=== PATIENT | female | born 1980 | race Caucasian/White ===

== ENCOUNTER 2018-03-09 16:49 | Emergency (ER) | payer OTHER, MEDICAID, SELFPAY ==
[2018-03-09 17:12] VITALS: BP 130/78; PULSE 82; RESP 17; TEMP 36.1; O2SAT 99
--- NOTE | 2018-03-09 17:58 | DI.CT.S_ITS ---
PROCEDURE: CT ABDOMEN PELVIS W CON INDICATIONS: Pain to bilateral lower quadrants starting today TECHNIQUE: After the administration of intravenous contrast, 5 mm thick sections acquired from the diaphragm to the symphysis. 5 mm coronal and sagittal reformats were acquired. For radiation dose reduction, the following was used: automated exposure control, adjustment of mA and/or kV according to patient size. COMPARISON: None. FINDINGS: Image quality: Excellent. ABDOMEN: Lung bases: Lung bases are clear. Heart size is normal. Solid organs: Liver is normal in size and overall enhancement. 2 circumscribed hypodense lesions are present, one within hepatic segment VII and one within hepatic segment II of which demonstrate subtle peripheral enhancement suggesting the presence of hemangiomas. Gallbladder is surgically absent. Biliary system is non dilated. Pancreas enhances normally. Spleen is normal in size and enhancement. No adrenal nodules. Kidneys demonstrate normal size and enhancement, without hydronephrosis. Peritoneum and bowel: Bowel loops demonstrate normal wall thickness and caliber. The appendix is likely visualized within the retrocecal location and is normal in thickness (series 2, images 58-55). No free fluid or air. Nodes and vessels: No retroperitoneal or mesenteric adenopathy by size criteria. Aorta and inferior vena cava are normal in size. Miscellaneous: No ventral hernias. PELVIS: Genitourinary: Bladder wall thickness is normal. The uterus and ovaries are grossly unremarkable. Miscellaneous: No inguinal hernias or adenopathy. Bones: No suspicious bony lesions. No vertebral body compression fractures. IMPRESSION: 1. No acute intra-abdominal findings. Probable retrocecal appendix which is normal in appearance. 2. Probable hepatic hemangiomas as described above. Non-emergent ultrasound is recommended to further characterize these findings and exclude hepatic pathology. Dictated by: Nicolasa Love M.D. on 03/09/2018 at 19:41 Approved by: Nicolasa Love M.D. on 03/09/2018 at 19:46
[2018-03-09 18:00] LABS: RBC Urine None Seen (0-5/HPF)
[2018-03-09 18:23] LABS: Bacteria Urine Occasional (0-1); Culture Indicated Urine Specimen Cultured; Squamous Epithelial Cell Urine 1-5 /HPF; WBC Urine 1-5/HPF (0-5/HPF)
[2018-03-09] MEDS: MORPHINE 4 MG/ML INJ IV (18:30)
[2018-03-09] MEDS: ONDANSETRON 4 MG/2 ML INJ IV (18:31)
[2018-03-09] MEDS: SODIUM CHLORIDE 0.9% 1,000 ML 1000 ML IV (18:31)
[2018-03-09 18:32] LABS: Add Manual Diff / Slide Review NO; Basophils Percent Auto 0.5 % (0-2); Eosinophils Percent Auto 2.2 % (2-4); Hematocrit 43.2 % (36-46); Hemoglobin 14.5 g/dL (12.0-16.0); Lymphocytes Percent Auto 25.8 % (25-40); Mean Corpuscular HGB Conc 33.5 % (30-36); Mean Corpuscular Hemoglobin 27.7 PG (26-34); Mean Corpuscular Volume 82.6 fL (80-100); Monocytes Percent Auto 4.3 % (3-14); Neutrophils Absolute Auto 8100 /uL (3000-5900); Neutrophils Percent Auto 67.2 % (50-75); Platelet Count 322 X10^3/uL (150-400); Red Blood Cell Count 5.23 X10^6/uL (4.0-5.2); Red Cell Distribution Width 14.3 % (11.6-14.8)
[2018-03-09] MEDS: diphenhydrAMINE 50 MG/ML VIAL IV (18:55)
[2018-03-09 18:58] LABS: Alanine Aminotransferase 29 IU/L (9-52); Albumin 4.6 g/dL (3.5-5.0); Albumin Globulin Ratio 1.6 (1.0-2.8); Alkaline Phosphatase 72 U/L (38-126); Aspartate Aminotransferase 19 IU/L (14-36); BUN Creatinine Ratio 22.9 (6-22); Bilirubin Total 0.3 mg/dL (0.2-1.3); Blood Urea Nitrogen 16 mg/dL (7-17); Calcium 9.4 mg/dL (8.4-10.2); Carbon Dioxide 24 mmol/L (22-32); Chloride 103 mmol/L (98-107); Estimated Glomerular Filt Rate > 60.0 mL/min (>60); Globulin 2.8 g/dL (1.7-4.1); Glucose 95 mg/dL (70-100); HEMOLYSIS < 15 (0-50); Lipase 53 U/L (23-300); Potassium 4.1 mmol/L (3.4-5.1); Sodium 141 mmol/L (137-145); Total Protein 7.4 g/dL (6.3-8.2)
[2018-03-09 19:02] VITALS: BP 132/64; PULSE 73; RESP 15; O2SAT 98
--- NOTE | 2018-03-09 19:42 | ED_ITS ---
HPI - Abdominal Pain <LESIA Valero - Last Filed: 03/09/18 21:47> General Chief Complaint: Abdominal Pain Stated Complaint: stomach pain all day Time Seen by Provider: 03/09/18 16:51 Source: patient Mode of arrival: ambulatory Limitations: no limitations History of Present Illness HPI narrative: 37-year-old female with history of a chronic pain that is a nonsmoker here for complaint of having abdominal pain that started earlier today. She states that the pain is mostly to the anterior portion of the abdomen and into the bilateral lower quadrants. She denies any trauma to the abdomen. She denies any stressors or relievers of her pain. She denies any urinary symptoms. No vaginal bleeding or discharge. Last bowel movement was earlier today and was unremarkable. She does have some nausea. She denies any vomiting. No fevers no chills. She denies any flank pain. No other concerns or complaints. MD complaint: abdominal pain Related Data Home Medications Medication Instructions Recorded Confirmed cyclobenzaprine 10 mg PO TID 03/09/18 03/09/18 levothyroxine 88 mcg PO DAILY 03/09/18 03/09/18 naproxen 500 mg PO BID 03/09/18 03/09/18 oxycodone 10 mg PO 5XD 03/09/18 03/09/18 Previous Rx's Medication Instructions Recorded nitrofurantoin monohyd/m-cryst 100 mg PO BID #14 cap 03/09/18 Allergies Allergy/AdvReac Type Severity Reaction Status Date / Time acetaminophen [From Vicodin] Allergy Verified 03/09/18 18:49 bimatoprost Allergy Verified 03/09/18 18:49 bupropion [From Wellbutrin] Allergy Verified 03/09/18 18:49 codeine Allergy Verified 03/09/18 18:49 erythromycin base Allergy Verified 03/09/18 18:49 escitalopram [From Lexapro] Allergy Verified 03/09/18 18:49 gabapentin Allergy Verified 03/09/18 18:49 hydrocodone [From Vicodin] Allergy Verified 03/09/18 18:49 hydromorphone Allergy Verified 03/09/18 18:49 ketorolac Allergy Verified 03/09/18 18:49 Penicillins Allergy Verified 03/09/18 18:49 prednisone Allergy Verified 03/09/18 18:49 sertraline [From Zoloft] Allergy Verified 03/09/18 18:49 shellfish derived Allergy Verified 03/09/18 18:49 tramadol Allergy Verified 03/09/18 18:49 venlafaxine Allergy Verified 03/09/18 18:49 Review of Systems <LESIA Valero - Last Filed: 03/09/18 21:47> Constitutional Denies chills, Denies fever(s), Denies lethargy and Denies weakness Eyes Denies change in vision, Denies eye discharge, Denies irritation and Denies loss of vision ENT Ears, Nose, Mouth, and Throat: Denies change in voice, Denies neck pain and Denies sore throat Cardiovascular Denies chest pain, Denies irregular heart rhythm, Denies lightheadedness, Denies palpitations, Denies dyspnea, Denies dyspnea on exertion and Denies orthopnea Respiratory Denies cough, Denies dyspnea, Denies dyspnea on exertion and Denies wheezing Gastrointestinal Gastrointestinal: Reports abdominal pain and Reports nausea Genitourinary Denies hematuria, Denies flank pain, Denies urinary incontinence and Denies urinary urgency Musculoskeletal Denies neck pain Integumentary/Breasts Denies pruritus, Denies erythema, Denies rash and Denies wounds Neurologic Denies confusion, Denies loss of vision and Denies weakness Psychiatric Denies anxiety, Denies confusion, Denies depression, Denies homicidal ideation and Denies suicidal ideation Endocrine Denies palpitations Hematologic/Lymphatic Denies easy bruising Allergic/Immunologic Denies wheezing Exam <LESIA Valero - Last Filed: 03/09/18 21:47> Initial Vital Signs Initial Vital Signs: Vital Signs Temperature 97 F L 03/09/18 17:12 Pulse Rate 82 03/09/18 17:12 Respiratory Rate 17 03/09/18 17:12 Blood Pressure 130/78 03/09/18 17:12 Pulse Oximetry 99 03/09/18 17:12 Const General: cooperative and well developed Nutritional Appearance: well nourished Orientation: alert, awake, oriented x3 and not confused HENSD Mouth: oral mucosae normal and moist mucous membranes Eyes Conjunctivae: conjunctivae normal Sclera: sclerae normal Pupils: PERRL EOM: EOM intact bilaterally Resp Effort & Inspection: normal respiratory effort, able to speak in complete sentences, no respiratory distress and no use of accessory muscles Auscultation: clear to auscultation bilaterally, no rales, no rhonchi and no wheezes Cardio Rate: regular rate Rhythm: regular rhythm Heart Sounds: no click, no gallops, no murmurs and no rubs Pulses: normal peripheral pulses GI Inspection: non-distended Palpation: soft, no hepatosplenomegaly, No guarding, No pulsatile mass and tender Auscultation: normal bowel sounds General: No bladder abnormal Skin General: no rashes or lesions noted, No jaundice and No petechiae Neuro General: alert, oriented x3, gait normal and no focal motor deficits Speech: speech normal <Surjit Bernal DO - Last Filed: 03/09/18 23:04> Initial Vital Signs Initial Vital Signs: Vital Signs Temperature 97 F L 03/09/18 17:12 Pulse Rate 82 03/09/18 17:12 Respiratory Rate 17 03/09/18 17:12 Blood Pressure 130/78 03/09/18 17:12 Pulse Oximetry 99 03/09/18 17:12 Course <LESIA Valero - Last Filed: 03/09/18 21:47> Orders Ordered: ED Orders 03/09/18 17:15 Urine Culture Stat Urine Microscopic Stat 03/09/18 17:58 CT abdomen pelvis w con Stat 03/09/18 18:20 Complete Blood Count AUTO DIFF Stat Comprehensive Metabolic Panel Stat Lipase Stat Discontinued Medications Diphenhydramine HCl (Benadryl) 50 mg IV NOW ONE Stop: 03/09/18 18:53 Last Admin: 03/09/18 18:55 Dose: 50 mg Sodium Chloride (Normal Saline 0.9%) 1,000 mls @ 1,000 mls/hr IV BOLUS ONE Stop: 03/09/18 18:54 Last Infusion: 03/09/18 20:36 Dose: 0 mls/hr Admin: 03/09/18 18:31 Dose: 1,000 mls/hr Morphine Sulfate (Morphine) 4 mg IV NOW ONE Stop: 03/09/18 17:56 Last Admin: 03/09/18 18:30 Dose: 4 mg Ondansetron HCl (Zofran) 4 mg IV NOW ONE Stop: 03/09/18 17:56 Last Admin: 03/09/18 18:31 Dose: 4 mg Vital Signs - 8 hr 03/09/18 17:12 03/09/18 19:02 Temperature 97 F L Pulse Rate 82 73 Respiratory Rate 17 15 Blood Pressure 130/78 Blood Pressure [Right Arm] 132/64 Pulse Oximetry 99 98 <Surjit Bernal DO - Last Filed: 03/09/18 23:04> Orders Ordered: ED Orders 03/09/18 17:15 Urine Culture Stat Urine Microscopic Stat 03/09/18 17:58 CT abdomen pelvis w con Stat 03/09/18 18:20 Complete Blood Count AUTO DIFF Stat Comprehensive Metabolic Panel Stat Lipase Stat Discontinued Medications Diphenhydramine HCl (Benadryl) 50 mg IV NOW ONE Stop: 03/09/18 18:53 Last Admin: 03/09/18 18:55 Dose: 50 mg Sodium Chloride (Normal Saline 0.9%) 1,000 mls @ 1,000 mls/hr IV BOLUS ONE Stop: 03/09/18 18:54 Last Infusion: 03/09/18 20:36 Dose: 0 mls/hr Admin: 03/09/18 18:31 Dose: 1,000 mls/hr Morphine Sulfate (Morphine) 4 mg IV NOW ONE Stop: 03/09/18 17:56 Last Admin: 03/09/18 18:30 Dose: 4 mg Ondansetron HCl (Zofran) 4 mg IV NOW ONE Stop: 03/09/18 17:56 Last Admin: 03/09/18 18:31 Dose: 4 mg Vital Signs - 8 hr 03/09/18 17:12 03/09/18 19:02 Temperature 97 F L Pulse Rate 82 73 Respiratory Rate 17 15 Blood Pressure 130/78 Blood Pressure [Right Arm] 132/64 Pulse Oximetry 99 98 MDM - Abdominal Pain <LESIA Valero - Last Filed: 03/09/18 21:47> Lab Data Result diagrams: 03/09/18 18:20 03/09/18 18:20 Lab Results 03/09/18 03/09/18 03/09/18 Range/Units 17:15 18:20 18:20 WBC 12.0 H (4.5-11.0) X10^3/uL RBC 5.23 H (4.0-5.2) X10^6/uL Hgb 14.5 (12.0-16.0) g/dL Hct 43.2 (36-46) % MCV 82.6 (80-100) fL MCH 27.7 (26-34) PG MCHC 33.5 (30-36) % RDW 14.3 (11.6-14.8) % Plt Count 322 (150-400) X10^3/uL Neut % (Auto) 67.2 (50-75) % Lymph % (Auto) 25.8 (25-40) % [place]ne % (Auto) 4.3 (3-14) % Eos % (Auto) 2.2 (2-4) % Baso % (Auto) 0.5 (0-2) % Neut # (Auto) 8100 H (1886-2428) /uL Sodium 141 (137-145) mmol/L Potassium 4.1 (3.4-5.1) mmol/L Chloride 103 (98-107) mmol/L Carbon Dioxide 24 (22-32) mmol/L BUN 16 (7-17) mg/dL Creatinine 0.70 (0.52-1.04) mg/dL Estimated GFR > 60.0 (>60) mL/min BUN/Creatinine Ratio 22.9 H (6-22) Glucose 95 (70-100) mg/dL Calcium 9.4 (8.4-10.2) mg/dL Total Bilirubin 0.3 (0.2-1.3) mg/dL AST 19 (14-36) IU/L ALT 29 (9-52) IU/L Alkaline Phosphatase 72 (38-126) U/L Total Protein 7.4 (6.3-8.2) g/dL Albumin 4.6 (3.5-5.0) g/dL Globulin 2.8 (1.7-4.1) g/dL Albumin/Globulin Ratio 1.6 (1.0-2.8) Lipase 53 (23-300) U/L Urine RBC None seen (0-5/HPF) Urine WBC 1-5/hpf (0-5/HPF) Ur Squamous Epith Cells 1-5 /hpf Urine Bacteria Occasional (0-1) (None) Ur Culture Indicated? Specimen cultured Micro UA Comment Not Reportable Point of care testing: Point of Care Testing Test Results Negative Urine Dip Bedside Urine Glucose Negative Bedside Urine Bilirubin - Negative Bedside Urine Ketone +/- 5 Urine Specific [place] 1.020 Bedside Urine Occult Blood - Negative Bedside Urine pH 6.0 Bedside Urine Protein - Negative Bedside Urine Urobilinogen - Negative Bedside Urine Nitrite - Negative Bedside Urine Leukocytes +/- [address] scan - abdomen: Radiologist's impression: [address] [address] [address] Scan Report Signed Patient: Tiffany Ford MMR#: [id number] : 1980Acct:[id number] Age/Sex: 37 / FDate of Service: 03/09/18 Loc: ED Accession Number: [id number] Procedure: CT abdomen pelvis w con Ordering Provider: Robin Wilson PROCEDURE: CT ABDOMEN PELVIS W CON INDICATIONS: Pain to bilateral lower quadrants starting today TECHNIQUE: After the administration of intravenous contrast, 5 mm thick sections acquired from the diaphragm to the symphysis. 5 mm coronal and sagittal reformats were acquired. For radiation dose reduction, the following was used: automated exposure control, adjustment of mA and/or kV according to patient size. COMPARISON: None. FINDINGS: Image quality: Excellent. ABDOMEN: Lung bases: Lung bases are clear. Heart size is normal. Solid organs: Liver is normal in size and overall enhancement. 2 circumscribed hypodense lesions are present, one within hepatic segment VII and one within hepatic segment II of which demonstrate subtle peripheral enhancement suggesting the presence of hemangiomas. Gallbladder is surgically absent. Biliary system is non dilated. Pancreas enhances normally. Spleen is normal in size and enhancement. No adrenal nodules. Kidneys demonstrate normal size and enhancement, without hydronephrosis. Peritoneum and bowel: Bowel loops demonstrate normal wall thickness and caliber. The appendix is likely visualized within the retrocecal location and is normal in thickness (series 2, images 58-55). No free fluid or air. Nodes and vessels: No retroperitoneal or mesenteric adenopathy by size criteria. Aorta and inferior vena cava are normal in size. Miscellaneous: No ventral hernias. PELVIS: Genitourinary: Bladder wall thickness is normal. The uterus and ovaries are grossly unremarkable. Miscellaneous: No inguinal hernias or adenopathy. Bones: No suspicious bony lesions. No vertebral body compression fractures. IMPRESSION: 1. No acute intra-abdominal findings. Probable retrocecal appendix which is normal in appearance. 2. Probable hepatic hemangiomas as described above. Non-emergent ultrasound is recommended to further characterize these findings and exclude hepatic pathology. Dictated by: Nicolasa Love M.D. on 03/09/2018 at 19:41 Approved by: Nicolasa Love M.D. on 03/09/2018 at 19:46 MDM Narrative Medical decision making narrative: CBC shows a slightly elevated white count and neutrophils. CMP and lipase were obtained were unremarkable. Urinalysis shows signs of a urinary tract infection however she denies having any symptoms. CT of the abdomen was obtained was negative for any acute findings. No cause of her abdominal pain is found other than urinalysis. CT of the abdomen does show hemangiomas to the liver will have her follow up with primary care provider for supervision of these. Differential between a viral illness and urinary tract infection. Culture and sensitivity are pending Over-the- counter Tylenol as needed for any discomfort. Follow up with primary care provider. She is prescribed Macrobid to empirically treat for urinary tract infection. For any worsening symptoms return to the emergency room. <Surjit Bernal DO - Last Filed: 03/09/18 23:04> Lab Data Lab Results 03/09/18 03/09/18 03/09/18 Range/Units 17:15 18:20 18:20 WBC 12.0 H (4.5-11.0) X10^3/uL RBC 5.23 H (4.0-5.2) X10^6/uL Hgb 14.5 (12.0-16.0) g/dL Hct 43.2 (36-46) % MCV 82.6 (80-100) fL MCH 27.7 (26-34) PG MCHC 33.5 (30-36) % RDW 14.3 (11.6-14.8) % Plt Count 322 (150-400) X10^3/uL Neut % (Auto) 67.2 (50-75) % Lymph % (Auto) 25.8 (25-40) % [place]ne % (Auto) 4.3 (3-14) % Eos % (Auto) 2.2 (2-4) % Baso % (Auto) 0.5 (0-2) % Neut # (Auto) 8100 H (7847-6642) /uL Sodium 141 (137-145) mmol/L Potassium 4.1 (3.4-5.1) mmol/L Chloride 103 (98-107) mmol/L Carbon Dioxide 24 (22-32) mmol/L BUN 16 (7-17) mg/dL Creatinine 0.70 (0.52-1.04) mg/dL Estimated GFR > 60.0 (>60) mL/min BUN/Creatinine Ratio 22.9 H (6-22) Glucose 95 (70-100) mg/dL Calcium 9.4 (8.4-10.2) mg/dL Total Bilirubin 0.3 (0.2-1.3) mg/dL AST 19 (14-36) IU/L ALT 29 (9-52) IU/L Alkaline Phosphatase 72 (38-126) U/L Total Protein 7.4 (6.3-8.2) g/dL Albumin 4.6 (3.5-5.0) g/dL Globulin 2.8 (1.7-4.1) g/dL Albumin/Globulin Ratio 1.6 (1.0-2.8) Lipase 53 (23-300) U/L Urine RBC None seen (0-5/HPF) Urine WBC 1-5/hpf (0-5/HPF) Ur Squamous Epith Cells 1-5 /hpf Urine Bacteria Occasional (0-1) (None) Ur Culture Indicated? Specimen cultured Micro UA Comment Not Reportable Point of care testing: Point of Care Testing Test Results Negative Urine Dip Bedside Urine Glucose Negative Bedside Urine Bilirubin - Negative Bedside Urine Ketone +/- 5 Urine Specific [place] 1.020 Bedside Urine Occult Blood - Negative Bedside Urine pH 6.0 Bedside Urine Protein - Negative Bedside Urine Urobilinogen - Negative Bedside Urine Nitrite - Negative Bedside Urine Leukocytes +/- 15 Esterase Discharge Plan Departure Patient Disposition: Home Clinical Impression: Abdominal pain Discharge Date/Time: 03/09/18 20:48 Interventions: ED Discharge Assessment Last Done: 03/09/18 20:48 Instructions: DI for Abdominal Pain-Adult Activity Restrictions/Additional Instructions: Laboratory results show mildly elevated white count and neutrophils. Urinalysis shows signs of urinary tract infection. To for Aman between a viral illness and urinary tract infection causing her discomfort. You are prescribed an antibiotic called Macrobid use as directed. Plenty of fluids. Use over-the- counter Tylenol as needed for any discomfort. Follow up with primary care provider in the next few days for re-evaluation. CT of the abdomen was obtained was negative for any acute findings. CT of the abdomen does show some hemangiomas to the liver. These will need to be monitored and supervised by her primary care provider to ensure there stable. For any worsening symptoms return to the emergency room. Prescriptions: New nitrofurantoin monohyd/m-cryst 100 mg capsule 100 mg PO BID Qty: 14 RF: 0 No Action cyclobenzaprine 10 mg tablet 10 mg PO TID RF: 0 levothyroxine 88 mcg tablet 88 mcg PO DAILY RF: 0 naproxen 500 mg tablet 500 mg PO BID RF: 0 oxycodone 10 mg tablet 10 mg PO 5XD RF: 0 Referrals: Tyra De Leon ARNP [Primary Care Provider] - <Surjit Bernal DO - Last Filed: 03/09/18 23:04> Cosign ED Attending Marina Attestation: I was immediately available in the department for consultation. Documentation has been reviewed. I agree with assessment and plan.
== END 2018-03-09 20:48 | disposition home or self-care (01) ==
PROVIDERS: Emergency Provider Nurse Practitioner Family; PCP Nurse Practitioner Gerontology
DX: R10.9 Unspecified abdominal pain (principal)
CPT/HCPCS: 36591; 74177; 80053; 81003; 81015; 81025; 83690; 85025; 87086; 96361; 96374; 96375; 99283; 99285; J1200; J2270; J2405; Q9967

== ENCOUNTER 2018-08-09 16:49 | Emergency (ER) | payer OTHER, MEDICAID, SELFPAY ==
[2018-08-09 17:13] VITALS: BP 137/83; PULSE 77; RESP 22; TEMP 36.4; O2SAT 97
--- NOTE | 2018-08-09 17:52 | PC.NURSE ---
Pt states has seen pain doctor for left knee pain. Was told she needs to have fluid in her knee pulled out and an injection of cortisone for pain. Is waiting on insurance approval. She states she noticed some posterior calf pain today that feels like a daily horse.Denies chest pain or shortness of breath.
--- NOTE | 2018-08-09 18:01 | PC.NURSE ---
Pt states she thinks she has UTI. Obtained urine speciment for POC urine dip.
--- NOTE | 2018-08-09 18:49 | DI.US.S_ITS ---
PROCEDURE: US PERIPH VENOUS LOW EXTREM LT INDICATIONS: pain, swelling, no injury TECHNIQUE: Real-time imaging, as well as color and pulse Doppler interrogation, were performed of the lower extremity deep veins from the inguinal ligament to the popliteal fossa. COMPARISON: None. FINDINGS: The common femoral, femoral and popliteal veins are normally compressible, and free of intraluminal thrombus. Color and pulse Doppler demonstrate normal phasic intraluminal flow. There is normal augmentation response to distal compression maneuver. IMPRESSION: No deep venous thrombosis in the left lower extremity. Dictated by: Hadley Nuno M.D. on 08/09/2018 at 20:15 Approved by: Hadley Nuno M.D. on 08/09/2018 at 20:15
[2018-08-09 20:15] VITALS: BP 138/77; PULSE 74; RESP 18; O2SAT 100
--- NOTE | 2018-08-10 02:06 | ED.EXTPRO ---
HPI - Extremity Problem General Chief complaint: Extremity Problem,Nontraumatic Stated complaint: knee swelling,feels like daily horse Time Seen by Provider: 08/09/18 18:07 Source: patient and family Mode of arrival: ambulatory Limitations: no limitations History of Present Illness HPI Narrative: 37-year-old female nonsmoker history of morbid obesity, chronic back pain presents with many months ongoing left knee pain. She denies any specific injury and states it is likely due to wear and tear. She states that there is always a small amount of fluid on her knee but that has increased over the past few weeks. She now has some pain and swelling in her posterior calf. Family member works in health care and states she might have a blood clot so she presents for evaluation. She denies any redness, swelling warmth. She denies any specific injury. She is otherwise well and free of complaint. She denies any numbness, tingling weakness MD Complaint: extremity pain and extremity swelling Onset (ago): month(s) Pain Consistency: constant Location: left Quality: aching Radiation: none Relieving factors: movement Exacerbating factors: range of motion and weight bearing Associated symptoms: denies other symptoms Related Data Home Medications Medication Instructions Recorded Confirmed cyclobenzaprine 10 mg PO TID 03/09/18 08/09/18 levothyroxine 88 mcg PO DAILY 03/09/18 08/09/18 naproxen 500 mg PO BID 03/09/18 03/09/18 oxycodone 10 mg PO 5XD 03/09/18 08/09/18 Previous Rx's Medication Instructions Recorded nitrofurantoin monohyd/m-cryst 100 mg PO BID #14 cap 03/09/18 Allergies Allergy/AdvReac Type Severity Reaction Status Date / Time acetaminophen [From Vicodin] Allergy Verified 03/09/18 18:49 bimatoprost Allergy Verified 03/09/18 18:49 bupropion [From Wellbutrin] Allergy Verified 03/09/18 18:49 codeine Allergy Verified 03/09/18 18:49 erythromycin base Allergy Verified 03/09/18 18:49 escitalopram [From Lexapro] Allergy Verified 03/09/18 18:49 gabapentin Allergy Verified 03/09/18 18:49 hydrocodone [From Vicodin] Allergy Verified 03/09/18 18:49 hydromorphone Allergy Verified 03/09/18 18:49 ketorolac Allergy Verified 03/09/18 18:49 Penicillins Allergy Verified 03/09/18 18:49 prednisone Allergy Verified 03/09/18 18:49 sertraline [From Zoloft] Allergy Verified 03/09/18 18:49 shellfish derived Allergy Verified 03/09/18 18:49 tramadol Allergy Verified 03/09/18 18:49 venlafaxine Allergy Verified 03/09/18 18:49 Review of Systems Constitutional Denies chills, Denies fever(s), Denies lethargy and Denies weakness Eyes Denies change in vision, Denies eye discharge, Denies irritation and Denies loss of vision ENT Ears, Nose, Mouth, and Throat: Denies change in voice, Denies neck pain and Denies sore throat Cardiovascular Denies chest pain, Denies irregular heart rhythm, Denies lightheadedness, Denies palpitations, Denies dyspnea, Denies dyspnea on exertion and Denies orthopnea Respiratory Denies cough, Denies dyspnea, Denies dyspnea on exertion and Denies wheezing Gastrointestinal Gastrointestinal: Denies abdominal pain, Denies change in bowel habits, Denies diarrhea, Denies nausea and Denies vomiting Genitourinary Denies hematuria, Denies flank pain, Denies urinary incontinence and Denies urinary urgency Musculoskeletal Reports joint swelling and Denies neck pain Integumentary/Breasts Denies pruritus, Denies erythema, Denies rash and Denies wounds Neurologic Denies confusion, Denies loss of vision and Denies weakness Psychiatric Denies anxiety, Denies confusion, Denies depression, Denies homicidal ideation and Denies suicidal ideation Endocrine Denies palpitations Hematologic/Lymphatic Denies easy bruising Allergic/Immunologic Denies wheezing PFSH Social History Smoking Status: Never smoker Social History Smoking Status: Never smoker Exam Narrative Exam Narrative: GEN: 37-year-old female, morbidly obese AOx3 and in mild distress EYES: Pupils are equal, round, and reactive to light and accommodation. Extraoccular muscles are intact bilaterally. There is no subconjunctival hemorrhage or exudate. CHEST: Lungs are clear to auscultation bilaterally and free of wheezes, rales, or rhonchi. Heart rate is regular rhythm, there are no murmurs, clicks, rubs, or gallops. There is no chest wall tenderness. ABD: Abdomen is soft and nontender. There is no guarding or rebound. Bowel sounds are normal in all 4 quadrants. There is no mass or organomegaly. EXT: Full but painful range of motion of the left knee with a mild effusion. No erythema, warmth. Full ROM, no signs of septic arthritis SKIN: Warm, pink, and dry. No erythema or rash Initial Vital Signs Initial Vital Signs: Vital Signs Temperature 97.6 F 08/09/18 17:13 Pulse Rate 77 08/09/18 17:13 Respiratory Rate 22 08/09/18 17:13 Blood Pressure 137/83 08/09/18 17:13 Pulse Oximetry 97 08/09/18 17:13 Course Orders Ordered: ED Orders 08/09/18 18:49 US periph venous low extrem lt Stat Vital Signs - 8 hr 08/09/18 20:15 Pulse Rate 74 Respiratory Rate 18 Blood Pressure 138/77 Pulse Oximetry 100 MDM - Extremity (Nontraumatic) Lab Data Point of Care Testing Test Results Negative Urine Dip Bedside Urine Glucose Negative Bedside Urine Bilirubin - Negative Bedside Urine Ketone - Negative Urine Specific [place] 1.025 Bedside Urine Occult Blood - Negative Bedside Urine pH 6.0 Bedside Urine Protein - Negative Bedside Urine Urobilinogen - Negative Bedside Urine Nitrite - Negative Bedside Urine Leukocytes - Negative Esterase Imaging Data US: Attestation: I personally reviewed and interpreted this imaging study as follows: Radiologist's impression: No DVT Discharge Plan Departure Patient Disposition: Home Clinical Impression: Acute knee pain Qualifiers: Laterality: left Qualified Code(s): M25.562 - Pain in left knee Discharge Date/Time: 08/09/18 20:16 Interventions: ED Discharge Assessment Last Done: 08/09/18 20:15 Instructions: DI for Knee Pain Activity Restrictions/Additional Instructions: *You have been diagnosed with [acute on chronic left knee pain] *What to do: *Take medications as directed: Tylenol or Motrin *Follow up with your primary care provider in 2-3 days, call for an appointment. Let them know you were seen in the Emergency Department and that we ask that you be seen in follow up *Return to ER if you should have any new, worsening or concerning symptoms Prescriptions: No Action cyclobenzaprine 10 mg tablet 10 mg PO TID RF: 0 levothyroxine 88 mcg tablet 88 mcg PO DAILY RF: 0 naproxen 500 mg tablet 500 mg PO BID RF: 0 oxycodone 10 mg tablet 10 mg PO 5XD RF: 0 nitrofurantoin monohyd/m-cryst 100 mg capsule 100 mg PO BID Qty: 14 RF: 0 Referrals: Tyra De Leon ARNP [Primary Care Provider] -
== END 2018-08-09 20:16 | disposition home or self-care (01) ==
PROVIDERS: Emergency Provider Emergency Medicine; PCP Nurse Practitioner Gerontology
DX: M25.562 Pain in left knee (principal); R60.9 Edema, unspecified
CPT/HCPCS: 81003; 81025; 93971; 99282; 99283

== ENCOUNTER 2018-12-20 18:10 | Emergency (ER) | payer OTHER, MEDICAID, SELFPAY ==
[2018-12-20 18:18] VITALS: BP 128/56; PULSE 76; RESP 16; TEMP 36.8; O2SAT 100; BMI 51.9
--- NOTE | 2018-12-20 18:29 | ED.SKABFB ---
HPI - Skin/Abscess/Foreign Bdy General Chief complaint: Skin/Abscess/Foreign Body Stated complaint: RIGHT LOWER AREA INFECTION Time Seen by Provider: 12/20/18 18:10 Source: patient Mode of arrival: ambulatory Limitations: no limitations History of Present Illness HPI narrative: 37-year-old female nonsmoker presents with a red, painful lesion on her right lower abdomen which started as a pimple and has grown in size and spontaneously started draining. She denies systemic findings such as fever, chills nor nausea or vomiting. She denies any change in bowel or bladder habits. She does have a history of ingrown hairs on her abdomen which have become pustules in the past but never anything as large as this. complaint: abscess/boil Onset (ago): day(s) Tetanus up to date: yes Location: generalized (Right lower quadrant, abdominal wall) Severity: mild Quality: aching Relieving factors: none Associated symptoms: denies other symptoms Treatments prior to arrival: attempted to drain pus at home Related Data Home Medications Medication Instructions Recorded Confirmed cyclobenzaprine 10 mg PO TID 03/09/18 08/09/18 levothyroxine 88 mcg PO DAILY 03/09/18 08/09/18 naproxen 500 mg PO BID 03/09/18 03/09/18 oxycodone 10 mg PO 5XD 03/09/18 08/09/18 Previous Rx's Medication Instructions Recorded nitrofurantoin monohyd/m-cryst 100 mg PO BID #14 cap 03/09/18 doxycycline hyclate 100 mg PO BID #20 tab 12/20/18 Allergies Allergy/AdvReac Type Severity Reaction Status Date / Time acetaminophen [From Vicodin] Allergy Verified 03/09/18 18:49 bimatoprost Allergy Verified 03/09/18 18:49 bupropion [From Wellbutrin] Allergy Verified 03/09/18 18:49 codeine Allergy Verified 03/09/18 18:49 erythromycin base Allergy Verified 03/09/18 18:49 escitalopram [From Lexapro] Allergy Verified 03/09/18 18:49 gabapentin Allergy Verified 03/09/18 18:49 hydrocodone [From Vicodin] Allergy Verified 03/09/18 18:49 hydromorphone Allergy Verified 03/09/18 18:49 ketorolac Allergy Verified 03/09/18 18:49 Penicillins Allergy Verified 03/09/18 18:49 prednisone Allergy Verified 03/09/18 18:49 sertraline [From Zoloft] Allergy Verified 03/09/18 18:49 shellfish derived Allergy Verified 03/09/18 18:49 tramadol Allergy Verified 03/09/18 18:49 venlafaxine Allergy Verified 03/09/18 18:49 Review of Systems Constitutional Constitutional: Denies chills, Denies fatigue, Denies fever(s), Denies frequent falls, Denies lethargy and Denies weakness Eyes Eyes: Denies change in vision, Denies eye discharge, Denies irritation and Denies loss of vision ENT Ears, Nose, Mouth, and Throat: Denies change in voice, Denies dizziness, Denies neck pain, Denies sore throat and Denies throat swelling Cardiovascular Cardiovascular: Denies chest pain, Denies irregular heart rhythm, Denies lightheadedness, Denies palpitations, Denies dyspnea, Denies dyspnea on exertion and Denies orthopnea Respiratory Respiratory: Denies cough, Denies dyspnea, Denies dyspnea on exertion and Denies wheezing Gastrointestinal Gastrointestinal: Denies abdominal pain, Denies change in bowel habits, Denies diarrhea, Denies nausea and Denies vomiting Genitourinary Genitourinary: Denies hematuria, Denies flank pain, Denies urinary incontinence and Denies urinary urgency Musculoskeletal Musculoskeletal: Denies back pain, Denies muscle weakness, Denies neck pain, Denies numbness and Denies tingling Integumentary/Breasts Skin/Breast: Denies pruritus, Reports erythema, Denies rash, Reports skin pain, Reports skin swelling, Reports sores and Denies wounds Neurologic Neurologic: Denies behavioral changes, Denies confusion, Denies dizziness, Denies frequent falls, Denies loss of vision, Denies numbness, Denies tingling and Denies weakness Psychiatric Psychiatric: Denies anxiety, Denies behavioral changes, Denies confusion, Denies depression, Denies homicidal ideation and Denies suicidal ideation Endocrine Endocrine: Denies fatigue, Denies flushing and Denies palpitations Hematologic/Lymphatic Hematologic/Lymphatic: Denies easy bruising Allergic/Immunologic Allergic/Immunologic: Denies urticaria, Denies throat swelling and Denies wheezing PFSH Social History Smoking Status: Never smoker Social History Smoking Status: Never smoker Exam Narrative Exam Narrative: GEN: 37-year-old female appears stated age AOx3 and in mild distress EYES: Pupils are equal, round, and reactive to light and accommodation. Extraoccular muscles are intact bilaterally. There is no subconjunctival hemorrhage or exudate. CHEST: Lungs are clear to auscultation bilaterally and free of wheezes, rales, or rhonchi. Heart rate is regular rhythm, there are no murmurs, clicks, rubs, or gallops. There is no chest wall tenderness. ABD: Abdomen is soft and nontender. There is no guarding or rebound. Bowel sounds are normal in all 4 quadrants. There is no mass or organomegaly. EXT: Full painless ROM of all extremities with no loss of sensation or strength. SKIN: A 2 x 2 cm area of erythema without induration or fluctuance, central area with granulation tissue and some purulence drainage which was cultured and sent to the lab Initial Vital Signs Initial Vital Signs: Vital Signs Temperature 98.2 F 12/20/18 18:18 Pulse Rate 76 12/20/18 18:18 Respiratory Rate 16 12/20/18 18:18 Blood Pressure 128/56 L 12/20/18 18:18 Pulse Oximetry 100 12/20/18 18:18 Course Orders Ordered: ED Orders 12/20/18 18:30 Wound Culture and Gram Stain Stat Discontinued Medications Doxycycline Hyclate (Vibramycin) 100 mg PO NOW ONE Stop: 12/20/18 18:26 Last Admin: 12/20/18 18:30 Dose: 100 mg Documented by: GAB Vital Signs Vital signs: Vital Signs - 8 hr 12/20/18 18:18 Temperature 98.2 F Pulse Rate 76 Respiratory Rate 16 Blood Pressure 128/56 L Pulse Oximetry 100 Discharge Plan Departure Patient Disposition: Home Clinical Impression: Abscess of skin or subcutaneous tissue Qualifiers: Site of cutaneous abscess: trunk Site of cutaneous abscess of trunk: abdominal wall Qualified Code(s): L02.211 - Cutaneous abscess of abdominal wall Discharge Date/Time: 12/20/18 18:38 Instructions: DI for Skin Abscess Activity Restrictions/Additional Instructions: *You have been diagnosed with [superficial cutaneous abscess] *What to do: *Take medications as directed: Your prescription has been electronically transmitted to [facility] at your request *Follow up with your primary care provider in 2-3 days, call for an appointment. Let them know you were seen in the Emergency Department and that we ask that you be seen in follow up *Return to ER if you should have any new, worsening or concerning symptoms Prescriptions: New doxycycline hyclate 100 mg tablet 100 mg PO BID Qty: 20 RF: 0 No Action cyclobenzaprine 10 mg tablet 10 mg PO TID RF: 0 levothyroxine 88 mcg tablet 88 mcg PO DAILY RF: 0 naproxen 500 mg tablet 500 mg PO BID RF: 0 oxycodone 10 mg tablet 10 mg PO 5XD RF: 0 nitrofurantoin monohyd/m-cryst 100 mg capsule 100 mg PO BID Qty: 14 RF: 0 Referrals: Tyra De Leon ARNP [Non-Staff] -
[2018-12-20] MEDS: DOXYCYCLINE HYCLATE 100 MG TABLET PO (18:30)
== END 2018-12-20 18:38 | disposition home or self-care (01) ==
PROVIDERS: Emergency Provider Emergency Medicine; PCP Internal Medicine
DX: L02.211 Cutaneous abscess of abdominal wall (principal)
CPT/HCPCS: 87070; 87075; 87077; 87186; 87205; 99282; 99283

== ENCOUNTER 2020-12-16 16:01 | Emergency (ER) | payer OTHER, MEDICAID, SELFPAY ==
[2020-12-16 16:39] VITALS: BP 135/85; PULSE 67; RESP 18; TEMP 36.6; O2SAT 96; BMI 50.2
[2020-12-16 17:02] LABS: COVID19 -Nasal RAPID Negative (Negative)
--- NOTE | 2020-12-16 17:47 | PC.NURSE ---
assessment done by provider.
--- NOTE | 2020-12-16 20:21 | ED.URI ---
HPI - URI/Sore Throat <Dejah Cabrera PA-C - Last Filed: 12/16/20 21:01> General Chief Complaint: Upper Respiratory Symptoms Stated Complaint: COVID EXPOSED COUGHING HEADACHE DIZZY Time Seen by Provider: 12/16/20 17:32 Source: patient Mode of arrival: Family Vehicle Limitations: no limitations History of Present Illness HPI Narrative: 39-year-old female with a history of diabetes presents to the ED with 2 days of headache, cough. Patient endorses exposure to COVID-19, is unvaccinated for COVID 19. Denies fever, chills, chest pain, shortness of breath, nausea, vomiting, syncope. Denies visual disturbances, neck pain. Related Data Home Medications Medication Instructions Recorded Confirmed cyclobenzaprine 10 mg tablet 10 mg PO TID 03/09/18 08/09/18 levothyroxine 88 mcg tablet 88 mcg PO DAILY 03/09/18 08/09/18 naproxen 500 mg tablet 500 mg PO BID 03/09/18 03/09/18 oxycodone 10 mg tablet 10 mg PO 5XD 03/09/18 08/09/18 Previous Rx's Medication Instructions Recorded nitrofurantoin 100 mg PO BID #14 cap 03/09/18 monohydrate/macrocrystals 100 mg capsule doxycycline hyclate 100 mg tablet 100 mg PO BID #20 tab 12/20/18 Allergies Allergy/AdvReac Type Severity Reaction Status Date / Time acetaminophen [From Vicodin] Allergy Verified 12/16/20 16:44 bimatoprost Allergy Verified 12/16/20 16:44 bupropion [From Wellbutrin] Allergy Verified 12/16/20 16:44 codeine Allergy Verified 12/16/20 16:44 erythromycin base Allergy Verified 12/16/20 16:44 escitalopram [From Lexapro] Allergy Verified 12/16/20 16:44 gabapentin Allergy Verified 12/16/20 16:44 hydrocodone [From Vicodin] Allergy Verified 12/16/20 16:44 hydromorphone Allergy Verified 12/16/20 16:44 ketorolac Allergy Verified 12/16/20 16:44 Penicillins Allergy Verified 12/16/20 16:44 prednisone Allergy Verified 12/16/20 16:44 sertraline [From Zoloft] Allergy Verified 12/16/20 16:44 shellfish derived Allergy Verified 12/16/20 16:44 tramadol Allergy Verified 12/16/20 16:44 venlafaxine Allergy Verified 12/16/20 16:44 Review of Systems <Dejah Cabrera PA-C - Last Filed: 12/16/20 21:01> Constitutional Constitutional: Reports body ache(s), Denies chills, Denies fatigue, Denies fever(s), Denies frequent falls, Reports headache(s), Denies lethargy and Denies weakness Eyes Eyes: Denies change in vision, Denies eye discharge, Denies irritation and Denies loss of vision ENT Ears, Nose, Mouth, and Throat: Denies change in voice, Denies dizziness, Reports headache(s), Denies neck pain, Denies sore throat and Denies throat swelling Cardiovascular Cardiovascular: Denies chest pain, Denies irregular heart rhythm, Denies lightheadedness, Denies palpitations, Denies dyspnea, Denies dyspnea on exertion and Denies orthopnea Respiratory Respiratory: Denies cough, Denies dyspnea, Denies dyspnea on exertion and Denies wheezing Gastrointestinal Gastrointestinal: Denies abdominal pain, Denies change in bowel habits, Denies diarrhea, Denies nausea and Denies vomiting Musculoskeletal Musculoskeletal: Denies neck pain and Denies numbness Integumentary/Breasts Skin/Breast: Denies pruritus, Denies erythema, Denies rash and Denies wounds Neurologic Neurologic: Denies behavioral changes, Denies confusion, Denies dizziness, Denies frequent falls, Reports headache(s), Denies loss of vision, Denies numbness and Denies weakness Psychiatric Psychiatric: Denies anxiety, Denies behavioral changes, Denies confusion, Denies depression, Denies homicidal ideation and Denies suicidal ideation Endocrine Endocrine: Denies fatigue, Denies flushing and Denies palpitations Hematologic/Lymphatic Hematologic/Lymphatic: Denies easy bruising Allergic/Immunologic Allergic/Immunologic: Denies urticaria, Denies throat swelling and Denies wheezing Patient History <Dejah Cabrera PA-C - Last Filed: 12/16/20 21:01> Social History Smoking Status: Current every day smoker Smoking Status: Current every day smoker tobacco type: cigarettes and vaping alcohol intake frequency: holidays/special occasions only Substance Use Type: marijuana and prescription drug Exam <Dejah Cabrera PA-C - Last Filed: 12/16/20 21:01> Initial Vital Signs Initial Vital Signs: Vital Signs Temperature 97.8 F 12/16/20 16:39 Pulse Rate 67 12/16/20 16:39 Respiratory Rate 18 12/16/20 16:39 Blood Pressure 135/85 12/16/20 16:39 Pulse Oximetry 96 12/16/20 16:39 Const General: cooperative HENMT Head: normocephalic and atraumatic Ears: external ears normal and TM's normal bilaterally Nose: external nose normal and No nasal discharge Face and sinus: sinuses nontender, face symmetric, no sinus tenderness and No dry mucous membranes Mouth: oral mucosae normal and moist mucous membranes Teeth and gingiva: dentition normal Throat: tonsils normal and uvula midline Eyes General: appearance normal, both eyes and all related structures Eyelids: eyelids normal Conjunctivae: conjunctivae normal Sclera: sclerae normal Pupils: PERRL EOM: EOM intact bilaterally Neck Neck: normal visual inspection, trachea midline, No lymphadenopathy, No midline deformity and No JVD Lymphatic: No lymphedema Chest Chest: normal inspection of the chest Resp Effort & Inspection: normal respiratory effort, able to speak in complete sentences, no respiratory distress and no use of accessory muscles Auscultation: clear to auscultation bilaterally, no rales, no rhonchi and no wheezes Cardio Rate: regular rate Rhythm: regular rhythm Heart Sounds: no click, no gallops, no murmurs and no rubs Pulses: normal peripheral pulses GI Inspection: non-distended Palpation: soft, no hepatosplenomegaly, No guarding, No pulsatile mass and No tender Auscultation: normal bowel sounds Back/Spine/Pelvis Back: No CVA tenderness Cervical Spine: cervical ROM normal and No pain with cervical ROM Thoracic/Lumbar Spine: thoracic and lumbar spine normal to inspection Skin General: no rashes or lesions noted, No jaundice and No petechiae Neuro General: patient alert, patient oriented x3, gait normal and no focal motor deficits Speech: speech normal Other: Neurologically intact CN 1 through 12 intact, gait normal, no cerebellar signs. Extrem General: full ROM, no clubbing, cyanosis or edema, no pedal edema and no calf tenderness Psych Appearance: well kempt Mental Status: mental status grossly normal Attitude: cooperative Thought Content: normal and suicidality Judgment: judgment good <Tere Horn DO - Last Filed: 12/17/20 07:41> Initial Vital Signs Initial Vital Signs: Vital Signs Temperature 97.8 F 12/16/20 16:39 Pulse Rate 67 12/16/20 16:39 Respiratory Rate 18 12/16/20 16:39 Blood Pressure 135/85 12/16/20 16:39 Pulse Oximetry 96 12/16/20 16:39 Course <Dejah Cabrera PA-C - Last Filed: 12/16/20 21:01> Orders Ordered: ED Orders 12/16/20 16:36 COVID19 -Nasal swab/Pre-Proc Stat Vital Signs Vital signs: Vital Signs - 8 hr 12/16/20 16:39 Temperature 97.8 F Pulse Rate 67 Respiratory Rate 18 Blood Pressure 135/85 Pulse Oximetry 96 <Tere Horn DO - Last Filed: 12/17/20 07:41> Orders Ordered: ED Orders 12/16/20 16:36 COVID19 -Nasal swab/Pre-Proc Stat Vital Signs Vital signs: Vital Signs - 8 hr 12/16/20 16:39 Temperature 97.8 F Pulse Rate 67 Respiratory Rate 18 Blood Pressure 135/85 Pulse Oximetry 96 MDM - URI/Sore Throat <VICKY Plaza Last Filed: 12/16/20 21:01> Lab Data Labs: Lab Results 12/16/20 Range/Units 16:36 SARS-CoV-2 (PCR) Negative (Negative) MDM Narrative Medical decision making narrative: 39-year-old female with a history of diabetes presents to the ED with 2 days of headache, cough. Concern for COVID-19 versus other viral syndrome versus primary headache. Will order a COVID test, discharge home with ED return precautions. <DO Aura Pratt Last Filed: 12/17/20 07:41> Lab Data Labs: Lab Results 12/16/20 Range/Units 16:36 SARS-CoV-2 (PCR) Negative (Negative) Discharge Plan Departure Patient Disposition: Home Clinical Impression: Viral infection Instructions: DI for COVID-19 (Suspected or Confirmed ), Coronavirus Disease 2019, Can COVID-19 be prevented? Activity Restrictions/Additional Instructions: Return to the emergency department if increasing shortness of breath or chest pain. Take ibuprofen or Tylenol for fever, aches and pains. Retest for COVID-19 in 2 days. In the meanwhile, quarantine and continue handwashing and mask use Prescriptions: No Action cyclobenzaprine 10 mg tablet 10 mg PO TID RF: 0 levothyroxine 88 mcg tablet 88 mcg PO DAILY RF: 0 naproxen 500 mg tablet 500 mg PO BID RF: 0 oxycodone 10 mg tablet 10 mg PO 5XD RF: 0 nitrofurantoin monohyd/m-cryst 100 mg capsule 100 mg PO BID Qty: 14 RF: 0 doxycycline hyclate 100 mg tablet 100 mg PO BID Qty: 20 RF: 0 Referrals: Martine Angela MD [Primary Care Provider] - <Tere Horn DO - Last Filed: 12/17/20 07:41> Sign Out Provider Sign Out Attestation: I was immediately available in the department for consultation. Documentation has been reviewed. I agree with assessment and plan.
== END 2020-12-16 18:15 | disposition home or self-care (01) ==
PROVIDERS: Emergency Medicine; Emergency Provider Student in an Organized Health Care Education/Training Program; PCP Internal Medicine
DX: B34.9 Viral infection, unspecified (principal); R05 Cough; Z20.822 Contact with and (suspected) exposure to COVID-19
CPT/HCPCS: 87635; 99281; 99282; C9803

== ENCOUNTER → 2022-01-06 09:17 | Outpatient (CLI) | payer OTHER, MEDICAID, SELFPAY ==
--- NOTE | 2022-01-06 09:21 | DI.RAD.S_ITS ---
PROCEDURE: XR CERVICAL SPINE 4V OR 5V INDICATIONS: NECK PAIN TECHNIQUE: 5 views of the cervical spine acquired. COMPARISON: [facility], [facility], MRI C-SPINE W/O CONTRAST, 10/11/2015, 14:19. FINDINGS: Bones: No fractures or dislocations to the C7 level. There is mild bony neural foraminal narrowing at left C6-C7. There are small vertebral body osteophytes. There is mild uncovertebral joint hypertrophy. Soft tissues: No prevertebral soft tissue swelling. IMPRESSION: Mild degenerative change. Mild neural foraminal narrowing at left C6-C7. Dictated by: Lamin Pop M.D. on 01/06/2022 at 9:37 Approved by: Lamin Pop M.D. on 01/06/2022 at 9:41
== END ==
PROVIDERS: PCP Internal Medicine; Referring Provider Physical Medicine & Rehabilitation; Visit Provider Physical Medicine & Rehabilitation
DX: M54.2 Cervicalgia (principal); M48.02 Spinal stenosis, cervical region; G44.86 Cervicogenic headache; M47.812 Spondylosis without myelopathy or radiculopathy, cervical region; Z87.828 Personal history of other (healed) physical injury and trauma; E66.9 Obesity, unspecified; Z68.42 Body mass index [BMI] 45.0-49.9, adult
CPT/HCPCS: 72050; 99214

== ENCOUNTER 2022-03-15 22:36 | Emergency (ER) | payer OTHER, MEDICAID, SELFPAY ==
[2022-03-15 22:45] VITALS: BP 160/80; PULSE 83; RESP 20; TEMP 36.1; O2SAT 98; BMI 44.0
--- NOTE | 2022-03-15 22:54 | DI.RAD.S_ITS ---
PROCEDURE: XR CHEST 1V INDICATIONS: chest pain TECHNIQUE: One view of the chest was acquired. COMPARISON: None. FINDINGS: Surgical changes and devices: None. Lungs and pleura: Lungs are clear. No pleural effusions or pneumothorax. Mediastinum: Mediastinal contours appear normal. Heart size is normal. Bones and chest wall: No suspicious bony lesions. Overlying soft tissues appear unremarkable. IMPRESSION: No acute cardiopulmonary abnormality. Dictated by: Lamin Pop M.D. on 03/15/2022 at 23:37 Approved by: Lamin Pop M.D. on 03/15/2022 at 23:38
[2022-03-15 23:23] LABS: Add Manual Diff / Slide Review NO; Basophils Absolute Auto 100 /uL (0-100); Basophils Percent Auto 1.2 % (0-2); Eosinophils Absolute Auto 200 /uL (0-450); Eosinophils Percent Auto 2.1 % (2-4); Hematocrit 40.3 % (36-46); Hemoglobin 13.6 g/dL (12.0-16.0); Lymphocytes Absolute Auto 2300 /uL (1100-4500); Lymphocytes Percent Auto 32.1 % (25-40); Mean Corpuscular HGB Conc 33.8 % (30-36); Mean Corpuscular Hemoglobin 28.6 PG (26-34); Mean Corpuscular Volume 84.7 fL (80-100); Monocytes Absolute Auto 400 /uL (0-900); Monocytes Percent Auto 5.9 % (3-14); Neutrophils Absolute Auto 4300 /uL (1500-7000); Neutrophils Percent Auto 58.7 % (50-75); Platelet Count 355 X10^3/uL (150-400); Red Blood Cell Count 4.76 X10^6/uL (4.0-5.2); Red Cell Distribution Width 14.7 % (11.6-14.8); White Blood Cell Count 7.3 X10^3/uL (4.5-11.0)
[2022-03-15 23:30] LABS: INR 1.1 (0.9-1.3); Prothrombin Time 12.3 SECONDS (10.1-12.7)
[2022-03-15 23:32] LABS: PTT Partial Thromboplastin Tim 30 SECONDS (26-36)
[2022-03-15 23:35] LABS: Alanine Aminotransferase 34 IU/L (<35); Albumin 4.2 g/dL (3.5-5.0); Albumin Globulin Ratio 1.4 (1.0-2.8); Alkaline Phosphatase 70 U/L (38-126); Aspartate Aminotransferase 24 IU/L (14-36); BUN Creatinine Ratio 16.1 (6-22); Bilirubin Total 0.2 mg/dL (0.2-1.3); Blood Urea Nitrogen 18 mg/dL (7-17); Calcium 8.9 mg/dL (8.4-10.2); Carbon Dioxide 26 mmol/L (22-32); Chloride 104 mmol/L (98-107); Creatine Kinase 43 U/L (30-135); Estimated Glomerular Filt Rate > 60 mL/min (>60); Glucose 98 mg/dL (70-100); HEMOLYSIS < 15 (0-50); Lipase 78 U/L (23-300); Sodium 138 mmol/L (137-145); Total Protein 7.2 g/dL (6.3-8.2)
[2022-03-15 23:47] LABS: Troponin I < 0.012 ng/mL (0.01-0.034)
[2022-03-16 00:16] VITALS: BP 123/74; PULSE 83; O2SAT 100
[2022-03-16 00:25] VITALS: BP 128/70; PULSE 71; RESP 26; O2SAT 99
[2022-03-16 00:30] VITALS: BP 129/66; PULSE 66; RESP 19; O2SAT 100
--- NOTE | 2022-03-16 00:39 | PC.NURSE ---
Pt presents with not feeling well for about 1 week. Pt reports neck & shoulder pain, body aches, nausea, intermittent SOB, and difficulty voiding for past week. Today pt took her BP and stated it was really high at 190 over something. Pt BP currently 123/74. Pt denies chest pain.
[2022-03-16 00:43] LABS: COVID19 -Nasal RAPID Negative (Negative)
[2022-03-16 01:00] VITALS: BP 128/63; PULSE 65; RESP 21; O2SAT 99
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
== END 2022-03-16 01:38 | disposition home or self-care (01) ==
PROVIDERS: Emergency Provider Emergency Medicine; PCP Internal Medicine
DX: R03.0 Elevated blood-pressure reading, without diagnosis of hypertension (principal); R51.9 Headache, unspecified
CPT/HCPCS: 36415; 71045; 80053; 81003; 82550; 83690; 83735; 84484; 85025; 85610; 85730; 87635; 93005; 99283; 99284; C9803

== ENCOUNTER → 2023-04-24 10:27 | Outpatient (CLI) | payer OTHER, MEDICAID, SELFPAY ==
--- NOTE | 2023-04-24 11:00 | DI.CT.S_ITS ---
PROCEDURE: CT CYSTOGRAM INDICATIONS: bladder injury TECHNIQUE: Both before and after gravity instillation of 10% Isovue contrast solution into the bladder through a Gurrola catheter, 5 mm axial images acquired from the bladder dome to the symphysis. 5 mm thick coronal and sagittal reformats were acquired. For radiation dose reduction, the following was used: automated exposure control, adjustment of mA and/or kV according to patient size. COMPARISON: None. FINDINGS: Image quality: Diagnostic. Bladder: Normal wall thickness, accounting for underdistension. No perivesicular fat stranding. No contrast external to the urinary bladder. Gurrola catheter within the urinary bladder, with trace air present. Distal Ureters: No abnormal distension. Left-sided nephroureteral stent in place. No contrast within the distal left ureter. PELVIS: Peritoneum and Bowel: Trace free air and fluid , presumably postsurgical. Pelvic Organs: No pelvic mass. Hysterectomy. Pelvic Nodes: No enlarged lymph nodes. Miscellaneous: No inguinal hernias are seen. Surgical changes along the anterior pelvic wall. No drainable collection. Bones: No aggressive osseous abnormality. IMPRESSION: No contrast extravasation noted from the urinary bladder. The distal left ureter does not contain contrast. Consider IVP to entirely exclude distal ureter injury. Trace free fluid and gas within the abdomen, presumably postsurgical. Dictated by: Robin Burk M.D. on 04/24/2023 at 13:21 Approved by: Robin Burk M.D. on 04/24/2023 at 13:27
== END ==
LOC: CT 10:29
PROVIDERS: PCP Internal Medicine; Referring Provider Urology; Visit Provider Urology
DX: S37.20XA Unspecified injury of bladder, initial encounter (principal); X58.XXXA Exposure to other specified factors, initial encounter
CPT/HCPCS: 72194

== ENCOUNTER 2023-05-08 21:06 | Emergency (ER) | payer OTHER, MEDICAID, SELFPAY ==
[2023-05-08 21:09] VITALS: BP 133/68; PULSE 87; RESP 18; TEMP 37.3; O2SAT 99; BMI 29.5
--- NOTE | 2023-05-08 21:33 | DI.CT.S_ITS ---
PROCEDURE: CT ABDOMEN PELVIS W CON INDICATIONS: Lower abdominal pain TECHNIQUE: After the administration of intravenous contrast, axial sections acquired from the lung bases to the pubic symphysis. Coronal and sagittal reformats were performed. For radiation dose reduction, the following was used: automated exposure control, adjustment of mA and/or kV according to patient size. COMPARISON: [facility], CT, CT CYSTOGRAM, 04/24/2023, 10:48. [facility], CT, CT ABDOMEN PELVIS W CON, 03/09/2018, 19:11. FINDINGS: Image quality: Diagnostic. Lower Chest: No significant findings. ABDOMEN: Liver: Hemangioma at the dome of the liver measuring 4 cm. Probable additional hemangioma or cyst in the left lobe of the liver measuring 2.3 cm. These are similar to 2018. Gallbladder: Absent. Biliary ducts: No biliary dilation. Pancreas: No ductal dilation. Spleen: Size is within normal limits. Adrenal Glands: No adrenal nodules. Kidneys and Ureters: Left double-J ureteral stent is in the expected position. No hydronephrosis. No solid mass. No complex renal cystic lesion which requires follow up. Stomach and Bowel: Suture material at the stomach. Normal colonic caliber, without significant wall thickening. The appendix is not definitely seen. Peritoneum: No abnormal intraperitoneal fluid. No free air. Ventral Wall: No hernia. Abdominal Nodes: No retroperitoneal or mesenteric adenopathy by size criteria. Vessels: Aorta and inferior vena cava are normal in size. PELVIS: Pelvic Organs: Cystic/tubular structure in the left adnexal region measuring approximately 5.7 x 4.7 cm in total size, (2/65), similar. This was not seen in 2018. Anteverted uterus. Bladder: No stone. Pelvic Nodes: No enlarged lymph nodes. Miscellaneous: No inguinal hernias are seen. Bones: No aggressive osseous abnormality. IMPRESSION: 1. Left double-J ureteral stent in the expected position. No hydronephrosis. 2. Tubular cystic structure in the region of the left adnexa. Primary diagnostic considerations include hydrosalpinx, left ovarian cyst, or a fluid collection. CT IVP and/or pelvic ultrasound would be helpful for further evaluation. Dictated by: Lamin Pop M.D. on 05/08/2023 at 23:50 Approved by: Lamin Pop M.D. on 05/09/2023 at 0:00
[2023-05-08 21:54] LABS: Add Manual Diff / Slide Review NO; Basophils Absolute Auto 100 /uL (0-100); Eosinophils Absolute Auto 300 /uL (0-450); Eosinophils Percent Auto 6.9 % (2-4); Hematocrit 28.1 % (36-46); Hemoglobin 9.2 g/dL (12.0-16.0); Lymphocytes Absolute Auto 2200 /uL (1100-4500); Lymphocytes Percent Auto 47.8 % (25-40); Mean Corpuscular HGB Conc 32.9 % (30-36); Mean Corpuscular Hemoglobin 26.6 PG (26-34); Monocytes Absolute Auto 300 /uL (0-900); Monocytes Percent Auto 6.8 % (3-14); Neutrophils Absolute Auto 1700 /uL (1500-7000); Neutrophils Percent Auto 36.5 % (50-75); Platelet Count 541 X10^3/uL (150-400); Red Blood Cell Count 3.47 X10^6/uL (4.0-5.2); Red Cell Distribution Width 15.7 % (11.6-14.8); White Blood Cell Count 4.6 X10^3/uL (4.5-11.0)
[2023-05-08 22:11] LABS: Alanine Aminotransferase 28 IU/L (<35); Albumin 3.9 g/dL (3.5-5.0); Albumin Globulin Ratio 1.4 (1.0-2.8); Alkaline Phosphatase 76 U/L (38-126); Aspartate Aminotransferase 23 IU/L (14-36); BUN Creatinine Ratio 17.4 (6-22); Bilirubin Total 0.3 mg/dL (0.2-1.3); Blood Urea Nitrogen 12 mg/dL (7-17); Carbon Dioxide 26 mmol/L (22-32); Chloride 106 mmol/L (98-107); Estimated Glomerular Filt Rate > 60 mL/min (>60); Globulin 2.7 g/dL (1.7-4.1); Glucose 77 mg/dL (70-100); HEMOLYSIS < 15 (0-50); Lipase 56 U/L (23-300); Sodium 140 mmol/L (137-145); Total Protein 6.6 g/dL (6.3-8.2)
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
[2023-05-09 00:28] VITALS: BP 125/66; PULSE 64; RESP 18; TEMP 36.7; O2SAT 99
[2023-05-09 00:30] LABS: Urine Volume 10mL (spun)
[2023-05-09 00:43] LABS: Bacteria Urine Occasional (0-1); RBC Urine 5-10/HPF (0-5/HPF); WBC Urine None Seen (0-5/HPF)
[2023-05-09 00:44] LABS: Amorphous Sediment Urine 2+; Culture Indicated Urine Cult Not Indicated; Mucus Urine 1+ (Negative); Squamous Epithelial Cell Urine 0-1 /HPF (0-5/HPF)
== END 2023-05-09 00:55 | disposition home or self-care (01) ==
PROVIDERS: Emergency Provider Emergency Medicine; PCP Internal Medicine
DX: R10.31 Right lower quadrant pain (principal); Z90.710 Acquired absence of both cervix and uterus
CPT/HCPCS: 36415; 51798; 74177; 80053; 81015; 83690; 85025; 99283; 99284; Q9967